=== PATIENT | female | born 1980 | race Caucasian/White ===

== ENCOUNTER → 2019-05-01 06:58 | Outpatient (CLI) | payer OTHER, SELFPAY ==
[2019-05-01 07:18] LABS: Basophils % 0.4 % (0.1-2.0); Eosinophils # 0.1 K/mm3 (0.0-0.4); Eosinophils % 1.3 % (0.1-12.0); Hematocrit 39.1 % (37.0-47.0); Hemoglobin 12.7 g/dL (12.2-16.2); Lymphocytes # 2.7 K/mm3 (0.7-4.5); Mean Corpuscular HGB Conc 32.4 g/dL (31.8-35.4); Mean Corpuscular Hemoglobin 26.5 pg (27.0-31.2); Mean Corpuscular Volume 81.9 fl (81-99); Monocytes # 0.5 K/mm3 (0.1-1.0); Monocytes % 5.8 % (1.7-9.3); Neutrophils # 5.1 K/mm3 (1.8-7.8); Neutrophils % 60.5 % (37.0-80.0); Platelet Count 379 K/mm3 (142-424); Red Blood Count 4.77 M/mm3 (4.20-5.40); Red Cell Distribution Width 14.4 % (11.5-17.5); White Blood Count 8.5 K/mm3 (4.8-10.8)
[2019-05-01 10:21] LABS: Alanine Aminotransferase 31 U/L (12-78); Albumin Level 3.4 gm/dL (3.4-5.0); Alkaline Phosphatase 91 U/L (46-116); Anion Gap 12.2 mEq/L (5-15); Aspartate Amino Transferase 17 U/L (15-37); Bilirubin,Total 0.3 mg/dL (0.2-1.0); Blood Urea Nitrogen 11 mg/dL (7-18); Calcium 8.5 mg/dL (8.5-10.1); Carbon Dioxide 28 mmol/L (21.0-32.0); Chloride 104 mmol/L (98-107); Chol/HDL Ratio 3.8 (1-3.5); Cholesterol 133 mg/dL (140-200); Creatinine,Serum 0.79 mg/dL (0.55-1.02); Estimated Glomerular Filt Rate 81 ml/min (>60); Free T4 (Free Thyroxine) 0.84 ng/dl (0.76-1.46); GFR (African American) 99 ML/MIN (>60); Globulin 3.5 gm/dl (1.3-3.2); Glucose 90 mg/dL (74-106); HDL Cholesterol 35 mg/dL (29-89); LDL Cholesterol 83 mg/dL (0-130); Potassium 4.2 mmoL/L (3.5-5.1); Sodium 140 mmol/L (136-145); Thyroid Stimulating Hormone 4.89 uIU/ml (0.358-3.740); Total Protein,Serum 6.9 gm/dL (6.4-8.2); Triglycerides 73 mg/dL (30-200); VLDL Cholesterol 15 mg/dL (0-40)
[2019-05-01 11:07] LABS: Amphetamine/Metha Screen,Urine Negative ng/mL (<1000); Barbiturates Screen,Urine Negative ng/mL (<200); Benzodiazepines Screen,Urine Negative ng/mL (<200); Cannabinoid Screen,Urine Negative ng/mL (<50); Cocaine Screen,Urine Negative ng/mL (<300); Methadone Screen,Urine Negative ng/mL (<300); Opiate Screen,Urine Negative ng/mL (<300); Phencyclidine Screen,Urine Negative ng/mL (<25)
[2019-05-03 03:33] LABS: Thyroid Peroxidase Antibodies 13 IU/mL (0-34); Vitamin D 25 Hydroxy 31.2 ng/mL (30.0-100.0)
== END ==
PROVIDERS: Visit Provider Nurse Practitioner Family
DX: D72.829 Elevated white blood cell count, unspecified (principal); R53.83 Other fatigue; E11.9 Type 2 diabetes mellitus without complications; R68.89 Other general symptoms and signs; E03.9 Hypothyroidism, unspecified
CPT/HCPCS: 36415; 80053; 80061; 80305; 82652; 84439; 84443; 85025; 86376

== ENCOUNTER → 2019-06-01 07:14 | Outpatient (CLI) | payer OTHER, SELFPAY ==
[2019-06-01 08:22] LABS: Thyroid Stimulating Hormone 3.47 uIU/ml (0.358-3.740)
== END ==
PROVIDERS: Visit Provider Nurse Practitioner Family
DX: R79.89 Other specified abnormal findings of blood chemistry (principal)
CPT/HCPCS: 36415; 84443

== ENCOUNTER → 2021-04-05 07:40 | Outpatient (CLI) | payer BC, SELFPAY ==
--- NOTE | 2021-04-05 07:41 | MM_ITS ---
PROCEDURE INFORMATION: Exam: MG Screening 3D Mammography Exam date and time: 04/05/2021 7:41 AM Age: 41 years old Clinical indication: Encounter for screening mammogram for malignant neoplasm of breast TECHNIQUE: Imaging protocol: Screening tomosynthesis and 2D mammography including computer-aided detection (CAD) when performed. COMPARISON: No relevant prior studies available. FINDINGS: MAMMOGRAPHY: Breast composition: The breast tissue is heterogeneously dense, which may obscure small masses. Mass: None. Architectural distortion: None. Calcifications: No suspicious calcifications. Asymmetric density: None. Skin thickening: None. Axillary adenopathy: None. IMPRESSION: No mammographic evidence of malignancy. Annual screening is recommended unless otherwise clinically indicated. ASSESSMENT: BI-RADS Category 1: Negative
== END ==
PROVIDERS: PCP Internal Medicine Adolescent Medicine; Visit Provider Nurse Practitioner Obstetrics & Gynecology
DX: Z12.31 Encounter for screening mammogram for malignant neoplasm of breast (principal)
CPT/HCPCS: 77063; 77067

== ENCOUNTER → 2021-05-16 09:40 | Outpatient (POV) | payer BC, SELFPAY | PROVIDERS: Visit Provider Dermatology | DX: Z00.00 Encounter for general adult medical examination without abnormal findings (principal) ==

== ENCOUNTER → 2022-10-09 16:45 | Outpatient (CLI) | payer OTHER, SELFPAY ==
--- NOTE | 2022-10-09 16:46 | MM_ITS ---
PROCEDURE INFORMATION: Exam: MG Bilateral Screening 3D Mammography Exam date and time: 10/09/2022 4:36 PM Age: 42 years old Clinical indication: Screening examination TECHNIQUE: Imaging protocol: Bilateral Screening tomosynthesis and 2D mammography including computer-aided detection (CAD) when performed. COMPARISON: MG MM DIG SCREENING MAMM BI W/CAD 04/05/2021 8:15 AM FINDINGS: MAMMOGRAPHY: Breast composition: The breasts are heterogeneously dense, which may obscure small masses. Mass: None. Architectural distortion: None. Calcifications: No suspicious calcifications. Asymmetric density: None. Skin thickening: None. Axillary adenopathy: None. IMPRESSION: No mammographic evidence of malignancy. Annual screening is recommended unless otherwise clinically indicated. ASSESSMENT: BI-RADS Category 1: Negative
== END ==
PROVIDERS: PCP Internal Medicine Adolescent Medicine; Visit Provider Nurse Practitioner Obstetrics & Gynecology
DX: Z12.31 Encounter for screening mammogram for malignant neoplasm of breast (principal)
CPT/HCPCS: 77063; 77067

== ENCOUNTER → 2023-04-11 07:33 | Outpatient (CLI) | payer OTHER, SELFPAY ==
--- NOTE | 2023-04-11 07:34 | US_ITS ---
PROCEDURE: US TRANSVAGINAL CLINICAL INDICATION: agnormal bleeding with IUD, checking iud placement COMPARISON: No exams were available for comparison FINDINGS: UTERUS: 9cm x 6cmx 4cm with a combined endometrial thickness of 9.6mm. There is an IUD in the correct position within the uterine cavity. There are 3 separate fibroids within the myometrium. There are 2 nabothian cysts 1.3 cm and 1.0 cm 1. Posterior fundal fibroid 2.2 cm x 2.3 cm x 2.5 cm 2. Anterior fibroid 1.1 cm x 0.8 cm x 1.1 cm 3. Fundal fibroid 1.6 cm x 1.6 cm LEFT OVARY: [id number] with a volume of 6.4ml. There is a small follicle on the left ovary. RIGHT OVARY: 3cmx [id number] with a volume of 13.4ml. There is a 1.2 cm follicle. Both ovaries are seen and appear normal. Doppler flow to both ovaries are seen. There is no fluid in the cul-de-sac. IMPRESSION: 1. Anteverted uterus, normal in shape and size. An IUD is in the correct position within the uterine cavity. 2. There are 3 fibroids within the uterine myometrium the largest of which measures 2.5 centimeters. 3. Both ovaries are seen and appear normal. 4. There is no fluid in the cul-de-sac. Dictated by: Denilson English MD 04/11/2023 14:25 Denilson English MD in OV 04/11/2023 14:25
== END ==
LOC: RAD 07:34
PROVIDERS: PCP Internal Medicine Adolescent Medicine; Visit Provider Nurse Practitioner Obstetrics & Gynecology
DX: N92.1 Excessive and frequent menstruation with irregular cycle (principal); Z97.5 Presence of (intrauterine) contraceptive device
CPT/HCPCS: 76830

== ENCOUNTER → 2023-06-27 07:00 | Outpatient (CLI) | payer OTHER, SELFPAY ==
[2023-06-27 07:45] LABS: Basophils % 0.7 % (0.1-2.0); Eosinophils # 0.1 K/mm3 (0.0-0.4); Hematocrit 36.2 % (37.0-47.0); Hemoglobin 12.1 g/dL (12.2-16.2); Lymphocytes # 1.8 K/mm3 (0.7-4.5); Lymphocytes % 28.5 % (10-50); Mean Corpuscular HGB Conc 33.6 g/dL (31.8-35.4); Mean Corpuscular Hemoglobin 28.2 pg (27.0-31.2); Mean Corpuscular Volume 84.1 fl (81-99); Mean Platelet Volume 7.7 fl (7.4-10.4); Monocytes # 0.4 K/mm3 (0.1-1.0); Monocytes % 6.3 % (1.7-9.3); Neutrophils % 63.6 % (37.0-80.0); Platelet Count 333 K/mm3 (142-424); White Blood Count 6.3 K/mm3 (4.8-10.8)
[2023-06-27 07:57] LABS: Alanine Aminotransferase 16 U/L (12-78); Albumin/Globulin Ratio 1.3 (1.1-1.8); Alkaline Phosphatase 64 U/L (38-126); Anion Gap 12.2 mEq/L (5-15); Aspartate Amino Transferase 23 U/L (14-36); Bilirubin,Total 0.4 mg/dl (0.2-1.3); Blood Urea Nitrogen 7 mg/dl (7-17); Calcium 8.8 mg/dl (8.4-10.2); Carbon Dioxide 27 mmol/L (22.0-30.0); Chloride 102 mmol/L (98-107); Estimated Glomerular Filt Rate 92 ml/min (>60); GFR (African American) 111 ML/MIN (>60); Glucose 88 mg/dl (74-100); Potassium 4.2 mmoL/L (3.5-5.1); Sodium 137 mmol/L (136-145)
[2023-06-27 08:50] LABS: HCG,Quantitative < 2 mIU/ml (0-5.42)
== END ==
LOC: LAB 07:00
PROVIDERS: PCP Internal Medicine Adolescent Medicine; Visit Provider Nurse Practitioner Obstetrics & Gynecology
DX: D25.1 Intramural leiomyoma of uterus (principal)
CPT/HCPCS: 36415; 80053; 84702; 85025

== ENCOUNTER 2023-07-03 10:12 | Observation (INO) | payer OTHER, SELFPAY ==
[2023-06-28 12:39] VITALS: BMI 33.2
[2023-07-03] VITALS (25 sets, daily range): BP systolic 112–146; BP diastolic 70–91; PULSE 62–85; RESP 12–20; TEMP 36.2–43; O2SAT 92–100
--- NOTE | 2023-07-03 06:59 | P.PNANES_ITS ---
[facility] Disclaimer: The information contained in this section may have been updated after the patient was seen, as this information can be updated by other users. Medical History Elevated blood pressure reading IUD (intrauterine device) in place Mirena IUD inserted 06/10/18 Morbid obesity with BMI of 40.0-44.9, adult Family History (Updated 06/28/23 @ 12:40 by Macie Hallman RN) Other No significant family history Social History (Updated 06/28/23 @ 12:40 by Macie Hallman RN) Smoking Status: Never smoker alcohol intake: never substance use type: denies use current occupational status: employed Travel in the last 8 weeks: None [facility] Anesthesia Checklist Patient Identification Patient Identification: Arm Band and Family Structural Data Admitted From: Home Planned Operative Procedure/s: [facility] Consent for Planned Operative Procedure(s) Verified: Yes Verified Documents: Surgical Consent and History and Physical NPO Status Verified Time NPO: 00:00 Additional verifications Anesthesia Reactions: No Hx Blood Transfusions: No Blood Transfusion Reaction: No Cephalosporin Allergy: No Previous Colonoscopy: No Airway Assessment Mallampati Score:: Class I C-Spine Mobility Assessed: Yes TMJ Mobility Assessed: Yes Dentition: Good Dentition Neurological Assessment Level of Consciousness: Awake, Alert, Appropriate and Follows Commands Hx Seizures: No Numbness or tingling in extremities: No Anesthesia Plan Anesthesia Risk discussed: Yes ASA Class: II Anesthesia Type: General Preoperative Comments Pre-Operative Comments: Hypertension. No previous anesthesia. Anxious.
--- NOTE | 2023-07-03 09:24 | EXP.OP.NOTE ---
Date of procedure: 07/03/23 Pre-op Diagnosis:: Menorrhagia, irregular bleeding, fibroid uterus Post-op Diagnosis:: Menorrhagia, irregular bleeding, fibroid uterus Procedure performed:: Laparoscopically assisted vaginal hysterectomy, bilateral salpingectomy Surgeon:: Denilson English MD [employer]ud Mill Tender(s):: Dr. Hudson MELT SUPERINTENDANT:: Other (Bal Villatoro) Anesthesia: GETA Estimated blood loss (mL): 100 Clinical Note:: She is a 43-year-old lady who complains of very heavy periods as well as irregular bleeding. We had tried an IUD and that she continued to bleed despite this. Ultrasound showed that she had multiple small fibroids within the uterus. As result of that she was offered laparoscopically assisted vaginal hysterectomy and bilateral salpingectomy. The risks and benefits of surgery were discussed with the patient prior to surgery. Operative findings:: She had an anteverted somewhat bulky uterus. The posterior aspect of the uterus was enlarged with a fibroid. Ovaries and tubes appeared normal. There was an adhesion of epiploica to the anterior abdominal wall superior to the uterus. The rest the abdomen appeared normal. The appendix seen appeared normal. The deep pelvis appeared normal. Operative note:: She was taken to the operating room where general anesthesia was found be adequate. She was prepped and draped in normal sterile fashion in the semilithotomy position. A weighted speculum was placed in the vagina and the anterior lip of the cervix was grasped with a tenaculum. An acorn uterine manipulator was then placed within the cervical os. I then changed gloves. I injected 10 cc of 0.5% ropivacaine around the umbilicus and made a small incision within the umbilicus. I inserted a Veress needle into the abdominal cavity. The abdominal cavity was then insufflated with carbon dioxide gas to a pressure of 20 mmHg. I then inserted an 11 mm trocar under direct vision. I injected through and through the pubic hairline, made a small incision here and inserted a 5 mm trocar under direct vision. I identified the inferior epigastric arteries on the left side, went lateral to these and injected through and through. I then made a small incision and inserted an 11 mm trocar under direct vision. A similar 11 mm trocar was placed on the right side. The left round ligament was then grasped and cut through with harmonic scalpel. This was followed by opening up the peritoneum anteriorly to the midline. I then grasped the tube on the left side and cut through this. This is followed by cutting through the left utero-ovarian ligament. I used Harmonic scalpel on the coagulation mode. I then took down the posterior aspect of the broad ligament to the level of the uterosacral ligament. I then skeletonized the uterine arteries on the left side and placed hemoclips on these. Using the harmonic scalpel on coagulation mode adjacent to the cervix I then took down these uterine arteries. I then further freed up the bladder anteriorly and laterally on the left side. I then turned my attention to the right side where I grasped the right round ligament. I then cut through the right round ligament. I then took down the anterior peritoneum to the midline joining up with the other side. I further dissected the bladder off. The right tube was then grasped and cut through. This was followed by the right utero-ovarian ligament which was cut with coagulation mode. The posterior aspect of the right broad ligament was then taken down with harmonic scalpel. I skeletonized the uterine arteries on the right side. I applied hemoclips to the uterine arteries and staying adjacent to the cervix on the right side I took down the uterine arteries with harmonic scalpel on coagulation mode. I further freed up the bladder. We then assured hemostasis. I then grasped the distal end of the right tube and using harmonic scalpel I cut along the mesosalpinx. The tube was removed through the 11 mm t
--- NOTE | 2023-07-03 09:33 | EXP.HP ---
History of Present Illness *Admission Date: 07/03/23 *Reason for visit:: Menorrhagia, irregular periods, fibroid uterus *History of present illness: She is a 43-year-old lady who complains of irregular bleeding. Ultrasound confirmed that she had a fibroid uterus with 3 separate fibroids. The largest fibroid was posterior. She also had been tried with an IUD and unfortunately we were not able to help the bleeding with the IUD. Her IUD will be removed at the time of her surgery. [facility] Disclaimer: The information contained in this section may have been updated after the patient was seen, as this information can be updated by other users. Medical History Elevated blood pressure reading IUD (intrauterine device) in place Morbid obesity with BMI of 40.0-44.9, adult Family History No significant family history Social History Smoking Status: Never smoker alcohol intake: never substance use type: denies use current occupational status: employed Travel in the last 8 weeks: None Review of Systems Review of Systems Review of systems:: pertinent systems reviewed and negative unless documented below Meds Home Medications and Allergies Home Medications Medication Instructions Recorded Confirmed Type amitriptyline 25 mg tablet 25 mg PO HS Depression 09/17/22 06/28/23 History bupropion HCl 300 mg 24 hr tablet, 300 mg PO DAILY Depression 06/24/23 06/28/23 History extended release losartan 25 mg tablet 25 mg PO DAILY bp 06/24/23 06/28/23 History norgestimate 0.25 mg-ethinyl 1 tab PO DAILY uterine bleeding 06/28/23 06/28/23 History estradiol 35 mcg tablet (Sprintec (28)) New Prescriptions to Start Prescriptions: Allergies Allergy/AdvReac Type Severity Reaction Status Date / Time lisinopril AdvReac Cough Verified 07/03/23 06:19 Exam Data for Last 24 hours Vital signs and Labs for Last 24 Hours: Temp Pulse Resp BP Pulse Ox O2 Del Method 97.6 F 69 18 134/91 H 100 Room Air 07/03/23 06:20 07/03/23 06:20 07/03/23 06:20 07/03/23 06:20 07/03/23 06:20 07/03/23 06:20 Constitutional Constitutional: no acute distress *Routine HEENT Exam Head: Present normocephalic Eye: Present EOMI and PERRL ENT: Present mucous membranes moist *Routine Neck Exam Neck: Present supple; Absent lymphadenopathy *Routine Respiratory Exam Respiratory: Present CTA bilaterally *Routine Cardiovascular Exam Cardiovascular: Present RRR *Routine Abdominal Exam Abdominal: Present soft and normoactive bowel sounds; Absent tenderness *Routine Rectal Exam Rectal:: deferred *Routine Genitalia Exam Genitalia:: deferred *Routine Extremities Exam Extremities: Absent cyanosis, clubbing or edema *Routine Skin Exam Skin: Present warm; Absent rash *Routine Neurological Exam Neurological: Present alert and oriented X3 Assessment and Plan *Assessment and plan (1) Fibroid uterus: Status: Acute Qualifiers: Uterine leiomyoma location: intramural Qualified Code(s): D25.1 - Intramural leiomyoma of uterus Category: Medical Code(s): D25.9 - Leiomyoma of uterus, unspecified (2) Breakthrough bleeding with IUD: Status: Acute Category: Medical Code(s): N92.1 - Excessive and frequent menstruation with irregular cycle; Z97.5 - Presence of (intrauterine) contraceptive device (3) Morbid obesity with BMI of 40.0-44.9, adult: Status: Acute Category: Medical Code(s): E66.01 - Morbid (severe) obesity due to excess calories; Z68.41 - Body mass index [BMI] 40.0-44.9, adult (4) IUD (intrauterine device) in place: Problem Comment: Mirena IUD inserted 06/10/18 Status: Acute Category: Social Hx Code(s): Z97.5 - Presence of (intrauterine) contraceptive device (5) Menorrhagia: Stat
--- NOTE | 2023-07-03 09:42 | HMH.PHAINT1 ---
Pharmacy Intervention Comments: MEDICATION RECONCILIATION COMPLETED ON PATIENT USING EXTERNAL FILL HISTORY FROM PHARMACY. -IZA ALEXANDER, PATOD
--- NOTE | 2023-07-03 10:03 | PC.NURSE ---
Detailed report from Nikole CASE PICKER Received. RN reports LAVH with BSO, General anesthesia used, Pt. allergic to lisinopril, Zamora cath placed at end of surgery with clear yellow urine, mastistol, steris trips, T&T in place x4 lap sites, no vaginal bleeding, VSS Ancef given prior to incision. This RN v/u.
--- NOTE | 2023-07-03 10:52 | P.PNANES_ITS ---
[facility] Anesthesia Record Part I Anesthesia Record I Intake, IV Amount: 750 Hydration: Adequate Estimated blood loss (mL): 25 Urine output (mL): 0 Blood Products used (#): none Blood Pressure: 112/75 SaO2: 98 Pulse Rate: 85 Airway Patency: Patent Respiratory Rate: 14 Temperature: 97.1 F Patient is:: Drowsy and Stable Stable to PACU at:: 09:30
[2023-07-03 11:38] LABS: Microscopic,Cath URINE MICROSCOPIC (MICROSCOPIC)
[2023-07-03 11:42] LABS: Appearance,Urine/Cath CLEAR (Clear); Bilirubin,Cath Negative (Negative); Blood, Urine/Cath Negative (Negative); Color,Urine/Cath YELLOW (Yellow); Glucose,Urine/Cath (UA) Negative (Negative); Ketones,Urine/Cath TRACE (Negative); Leukocyte Esterase,Cath Negative (Negative); Nitrate,Cath Negative (Negative); PH,Urine/Cath 5.5 (5.0-8.5); Protein,Urine/Cath TRACE (Negative); Specific Gravity, Urine/Cath >= 1.030 (1.005-1.030); Urobilinogen,Cath 0.2 EU/dl (0.2)
[2023-07-03 11:53] LABS: Squamous Epithelial Ur./Cath 20-50 #/hpf (0-5); WBC,Urine/Cath Occasional #/hpf (0-3)
--- NOTE | 2023-07-03 19:04 | PC.NURSE ---
All care and documentation by Travis Giraldo Payroll Officer was under my direct supervision.
--- NOTE | 2023-07-03 20:00 | PC.NURSE ---
WITH PT ASSESSMENT HAD PT USE HER INCENTIVE SPIROMETER AND SHE WAS ABLE TO ACHIEVE 2500ML
--- NOTE | 2023-07-03 23:50 | PC.NURSE ---
ANCEF HUNG AT THIS TIME.PARUL TORADOL 30MG IVP ALSO GIVEN.PT REPORTS SOME CRAMPING,2 ON SCALE OF 0-10
[2023-07-04 04:00] VITALS: BP 137/80; PULSE 84; RESP 17; TEMP 36.9; O2SAT 95
--- NOTE | 2023-07-04 04:44 | PC.NURSE ---
PT HAS DONE WELL TONIGHT,LUNGS CLEAR,RESP.EVEN AND UNLABORED,BOWEL SOUNDS HYPOACTIVE.PT REPORTS FLATUS,NO DRAINAGE TO 4 ABD.LAP SITES,PT VOIDING WITHOUT DIFF.PT BEING MEDICATED WITH TYLENOL AND TORADOL
--- NOTE | 2023-07-04 06:05 | PC.NURSE ---
LAB HERE TO DRAW CMP AND CBC
[2023-07-04 06:18] LABS: Basophils % 0.4 % (0.1-2.0); Eosinophils % 0.1 % (0.1-12.0); Hematocrit 34.5 % (37.0-47.0); Hemoglobin 11.3 g/dL (12.2-16.2); Lymphocytes # 2.5 K/mm3 (0.7-4.5); Lymphocytes % 27.6 % (10-50); Mean Corpuscular HGB Conc 32.6 g/dL (31.8-35.4); Mean Corpuscular Hemoglobin 27.6 pg (27.0-31.2); Mean Corpuscular Volume 84.6 fl (81-99); Mean Platelet Volume 8.1 fl (7.4-10.4); Monocytes # 0.5 K/mm3 (0.1-1.0); Neutrophils # 5.9 K/mm3 (1.8-7.8); Neutrophils % 65.9 % (37.0-80.0); Platelet Count 320 K/mm3 (142-424); Red Blood Count 4.08 M/mm3 (4.20-5.40); Red Cell Distribution Width 15.5 % (11.5-17.5)
[2023-07-04 06:32] LABS: Anion Gap 10.9 mEq/L (5-15); Blood Urea Nitrogen 6 mg/dl (7-17); Calcium 8.2 mg/dl (8.4-10.2); Carbon Dioxide 25 mmol/L (22.0-30.0); Chloride 104 mmol/L (98-107); Creatinine Clearance Estimated 159 mL/min (50-200); Estimated Glomerular Filt Rate 92 ml/min (>60); GFR (African American) 111 ML/MIN (>60); Glucose 93 mg/dl (74-100); Potassium 3.9 mmoL/L (3.5-5.1); Sodium 136 mmol/L (136-145)
[2023-07-04 08:00] VITALS: BP 147/85; PULSE 87; RESP 20; TEMP 36.6; O2SAT 100
--- NOTE | 2023-07-04 08:29 | EXP.DC.SUM ---
General Admission date:: 07/03/23 Discharge date: 07/04/23 HPI HPI HPI: She is a 43-year-old lady who complains of irregular bleeding. Ultrasound confirmed that she had a fibroid uterus with 3 separate fibroids. The largest fibroid was posterior. She also had been tried with an IUD and unfortunately we were not able to help the bleeding with the IUD. Her IUD will be removed at the time of her surgery. Hospital Course Hospital Course Hospital Course: On July 03, 2023 she underwent a laparoscopically assisted vaginal hysterectomy and bilateral salpingectomy. She has done very well postoperatively and has remained afebrile with her hospitalization. She is eating and drinking and ambulating. She is voiding well. She has not had a bowel movement yet. Her hemoglobin is stable. She denies any shortness of breath, chest pain or calf tenderness. She is discharged home today to follow-up with me in approximately 3 weeks time. She will continue with her home medications. She was given a prescription for Percocet 5/325 number 20 tablets. She will take ibuprofen as needed as well. She will take her home medications. She was given the usual instructions with respect to limiting her activity, driving and sexual activity. She was given instructions with respect to wound care. Her condition on discharge is stable and improved. Exam Data for Last 24 hours Vital signs and Labs for Last 24 Hours: Temp Pulse Resp BP Pulse Ox O2 Del Method O2 Flow Rate 97.8 F 87 20 147/85 H 100 Room Air 1 07/04/23 08:00 07/04/23 08:00 07/04/23 08:00 07/04/23 08:00 07/04/23 08:00 07/04/23 08:00 07/03/23 12:30 Laboratory Results - last 24 hr 07/03/23 09:13: Urine Color Yellow, Urine Appearance Clear, Urine pH 5.5, Ur Specific Hoyt >= 1.030, Urine Protein Trace, Urine Glucose (UA) Negative, Urine Ketones Trace, Urine Blood Negative, Urine Nitrate Negative, Urine Bilirubin Negative, Urine Urobilinogen 0.2, Ur Leukocyte Esterase Negative, Urine RBC None, Urine WBC Occasional, Ur Squamous Epith Cells 20-50, Urine Bacteria None 07/04/23 06:06: WBC 9.0, RBC 4.08 L, Hgb 11.3 L, Hct 34.5 L, MCV 84.6, MCH 27.6, MCHC 32.6, RDW 15.5, Plt Count 320, MPV 8.1, Neut % (Auto) 65.9, Lymph % (Auto) 27.6, Cherry % (Auto) 6.0, Eos % (Auto) 0.1, Baso % (Auto) 0.4, Neut # (Auto) 5.9, Lymph # (Auto) 2.5, Cherry # (Auto) 0.5, Eos # (Auto) 0.0, Baso # (Auto) 0.0, Sodium 136, Potassium 3.9, Chloride 104, Carbon Dioxide 25, Anion Gap 10.9, BUN 6 L, Creatinine 0.70, Estimated Creat Clear 159, Estimated GFR 92, Est GFR ( Amer) 111, Glucose 93, Calcium 8.2 L I & O for Last 24 hours: Intake & Output 07/01/23 07/02/23 07/03/23 07/04/23 11:59 11:59 11:59 11:59 Intake Total 750 / 750 Output Total 1700 / 1700 Balance 750 / 750 -1700 / -1700 Constitutional Constitutional: no acute distress *Routine HEENT Exam Head: Present normocephalic *Routine Neck Exam Neck: Present full ROM *Routine Respiratory Exam Respiratory: Present normal respiratory effort and able to speak in complete sentences; Absent accessory muscle use *Routine Cardiovascular Exam Cardiovascular: Present RRR *Routine Abdominal Exam Abdominal: Present soft and normoactive bowel sounds; Absent tenderness, distended, rebound or guarding Results Data Completed and Pending Labs on day of discharge: Labs from last 24 hours 07/04/23 07/03/23 06:06 09:13 WBC 9.0 RBC 4.08 L Hgb 11.3 L Hct 34.5 L MCV 84.6 MCH 27.6 MCHC 32.6 RDW 15.5 Plt Count 320 MPV 8.1 Neut % (Auto) 65.9 Lymph % (Auto) 27.6 Cherry % (Auto) 6.0 Eos % (Auto) 0.1 Baso % (Auto) 0.4 Neut # (Auto) 5.9 Lymph # (Auto) 2.5 Cherry # (Auto) 0.5 Eos # (Auto) 0.0 Baso # (Auto) 0.0 Sodium 136 Potassium 3.9 Chloride 104 Carbon Dioxide 25 Anion Gap 10.9 BUN 6 L Creatinine 0.70 Estimated Creat Clear 159 Estimated GFR 92 Est GFR ( Amer) 111 Glucose
--- NOTE | 2023-07-05 07:47 | EXP.ANES.II ---
[facility] Anesthesia Record Part II Anesthesia Record Part II Discharge Time: 10:15 Destination: Obstetric PACU nurse assessment reviewed?: Yes Patient Condition:: Good Anesthesia Complications:: None Swallowing reflex intact?: Yes Airway Patency: Patent Cyanosis?: No Blood Pressure: 126/70 SaO2: 95 Respiratory Rate: 14 Pulse Rate: 76 Temperature: 97.1 F Mental Status: Alert & Oriented Pain level:: 8 Nausea and/or vomitting:: None Intake, IV Amount: 0 Hydration: Adequate
[2023-07-05 07:49] VITALS: BP 126/70; PULSE 76; RESP 14; TEMP 36.2; O2SAT 95
== END 2023-07-04 08:55 | disposition home or self-care (01) ==
LOC: OB 10:13
PROVIDERS: Admitting Provider Nurse Practitioner Obstetrics & Gynecology; PCP Internal Medicine Adolescent Medicine; Visit Provider Nurse Practitioner Obstetrics & Gynecology
PROC: 0UT9FZZ Resection of Uterus, Via Natural or Artificial Opening With Percutaneous Endoscopic Assistance (ICD-10-PCS; CPT 58552; principal; 2023-07-03 07:30)
DX: D25.9 Leiomyoma of uterus, unspecified (principal); N92.0 Excessive and frequent menstruation with regular cycle; E66.01 Morbid (severe) obesity due to excess calories; Z68.33 Body mass index [BMI] 33.0-33.9, adult
CPT/HCPCS: 58552; 36415; 80048; 81001; 85025; 96374; G0378; J0690; J2405

== ENCOUNTER 2024-04-21 07:43 | Outpatient (CLI) | payer BC, SELFPAY ==
--- NOTE | 2024-04-21 07:43 | MM_ITS ---
PROCEDURE INFORMATION: Exam: MG Bilateral Screening 3D Mammography Exam date and time: 04/21/2024 7:50 AM Age: 44 years old Clinical indication: Screening. No family history of breast cancer. TECHNIQUE: Imaging protocol: Bilateral Screening tomosynthesis and 2D mammography including computer-aided detection (CAD) when performed. COMPARISON: 1. MG MM DIG SCREENING MAMM BI W/CAD 10/09/2022 4:36 PM 2. MG MM DIG SCREENING MAMM BI W/CAD 04/05/2021 8:15 AM FINDINGS: MAMMOGRAPHY: Breast composition: The breasts are heterogeneously dense, which may obscure small masses. Mass: None. Architectural distortion: None. Calcifications: No suspicious calcifications. Asymmetric density: No developing asymmetry. Skin thickening: None. Axillary adenopathy: None. IMPRESSION: No mammographic evidence of malignancy. Annual screening is recommended unless otherwise clinically indicated. ASSESSMENT: BI-RADS Category 1: Negative
== END 2024-04-21 23:59 | disposition home or self-care (01) ==
LOC: RAD 07:43
PROVIDERS: PCP Internal Medicine Adolescent Medicine; Visit Provider Nurse Practitioner Obstetrics & Gynecology
DX: Z12.31 Encounter for screening mammogram for malignant neoplasm of breast (principal)
CPT/HCPCS: 77063; 77067

== ENCOUNTER 2025-08-14 13:15 | Outpatient (CLI) | payer BC, SELFPAY ==
[2025-08-14 21:34] LABS: Coronavirus 19, PCR Not Detected (NotDetected); Influenza A, PCR Not Detected (NotDetected); Influenza B, PCR Not Detected (NotDetected)
== END 2025-08-14 23:59 ==
LOC: LAB.DROPOF 08-16 13:18
PROVIDERS: PCP Internal Medicine Adolescent Medicine; Visit Provider Student in an Organized Health Care Education/Training Program
DX: J06.9 Acute upper respiratory infection, unspecified (principal)
CPT/HCPCS: 87631